=== PATIENT | male | born 1960 | race Two or more races ===

== ENCOUNTER 2019-10-16 06:00 | Day surgery (SDC) | payer OTHER ==
[~2019-10-16] VITALS: Ht 170.2 cm; Wt 88.5 kg
== END 2019-10-17 08:00 | disposition home or self-care (01) ==
LOC: AMB-ENDOS 06:00 → MEDJ 11:19 → SURH 11:19 → MEDJ 11:22 → SURH 11:22 → AMB-ENDOS 10-17 08:00 → SURH 10-17 11:35
PROVIDERS: ATTEND Surgery
DX: D12.2 Benign neoplasm of ascending colon (principal); D12.3 Benign neoplasm of transverse colon

== ENCOUNTER 2019-10-25 17:44 | Emergency (ER) | payer OTHER ==
[~2019-10-25] VITALS: Ht 170.2 cm; Wt 88.5 kg
[2019-10-25] MEDS ORDERED: DUTOPROL 100-11 EACH (17:54)
[2019-10-25] MEDS ORDERED: NEURONTIN600 M1 (17:55)
[2019-10-25] MEDS ORDERED: NIFEDIPINE20 MG (18:01)
[2019-10-25] MEDS ORDERED: GLYXAMBI 10 MG1 EACH (18:01)
[2019-10-25] MEDS ORDERED: BRILINTA60 MG (18:01)
[2019-10-25] MEDS ORDERED: CYMBALTA20 MG (18:02)
[2019-10-25] MEDS ORDERED: LANTUS SOL100 UNIT/1 (18:02)
[2019-10-25] MEDS ORDERED: INTEGRA PLUS C1 EACH (18:02)
[2019-10-25] MEDS ORDERED: CRESTOR5 MG (18:02)
[2019-10-25] MEDS ORDERED: HUMALOG100 UNIT/2 (18:03)
== END 2019-10-26 13:20 | disposition home or self-care (01) ==
LOC: ER 17:44
DX: K62.5 Hemorrhage of anus and rectum (principal); Z98.890 Other specified postprocedural states

== ENCOUNTER 2025-01-19 13:02 | Emergency (ER) | payer OTHER ==
[~2025-01-19] VITALS: Ht 170.2 cm; Wt 86.2 kg
[~2025-01-19 13:02] MED LIST: BRILINTA60 MG; CRESTOR5 MG; CYMBALTA20 MG; DUTOPROL 100-11 EACH; GLYXAMBI 10 MG1 EACH; HUMALOG100 UNIT/2; INTEGRA PLUS C1 EACH; LANTUS SOL100 UNIT/1; NEURONTIN600 M1; NIFEDIPINE20 MG
[2025-01-19] MEDS ORDERED: 0.9 % SODIUM CHLORIDE 1,000 ML IV SCH (13:37)
[2025-01-19 14:30] LABS: BASO % 0.7 % (0.1-1.2); EOS # 0.10 (0.04-0.54); EOS % 1.3 % (0.7-7.0); LYMPH # 1.37 (1.18-3.74); LYMPH % 18.1 % (19.3-53.1); MEAN PLATELET VOLUME 10.80 fl (9.4-12.4); MONO # 0.58 (0.24-0.82); MONO % 7.7 % (4.7-12.5); NEUT # 5.45 (1.56-6.13); NEUT % 71.9 % (34.0-71.1); RED CELL DISTRIBUTION WIDTH 12.1 % (11.6-14.4)
[2025-01-19 14:36] LABS: URINE APPEARANCE Clear; URINE BILIRRUBIN Negative (NEGATIVE); URINE BLOOD Negative; URINE COLOR Yellow; URINE KETONE Negative (NEGATIVE); URINE LEUKOCYTE Negative; URINE NITRATE Negative; URINE PROTEIN 30 (NEGATIVE); URINE UROBILINOGEN 1.0 E.U./dl
[2025-01-19 14:49] LABS: BUN CREA RATIO 24.0 (7.0-25.0); CREATININE SERUM 1.23 mg/dL (0.70-1.30); GFR 59.62; GLUCOSE FASTING 89.0 mg/dL (65-100); OSMOLALITY SERUM 287.0 MOSM/KG (275-295)
[2025-01-19 14:54] LABS: URINE BACTERIA 2.3 uL (0.0-1933); URINE CAST 0.00 uL (0.0-1.40); URINE EPITHELIAL CELLS 1.0 uL (0.0-38.8); URINE GLUCOSE >=1000 MG/DL (NEGATIVE); URINE RBC 1.4 uL (0.0-20.8); URINE WBC 1.0 uL (0.0-23.2)
== END 2025-01-19 16:02 | disposition home or self-care (01) ==
LOC: ER 13:02
PROVIDERS: Emergency Medicine
DX: E11.649 Type 2 diabetes mellitus with hypoglycemia without coma (principal); I10 Essential (primary) hypertension
CPT/HCPCS: 36415; 96365; 96366; 99282; J7030